=== PATIENT | female | born 1955 | race Caucasian/White ===

== ENCOUNTER 2018-11-09 18:47 | Emergency (ER) | payer MEDICARE, OTHER ==
[~2018-11-09] VITALS: Ht 157.5 cm; Wt 66.8 kg
[2018-11-09] MEDS ORDERED: PARO20TA24 PO (19:05)
[2018-11-09] MEDS ORDERED: IBUPROFEN 800 MG TABLET PO ONE (21:30)
[2018-11-09 21:57] VITALS: BP 129/77
== END 2018-11-09 22:11 | disposition home or self-care (01) ==
LOC: EMS 18:50
DX: S62.616A Displaced fracture of proximal phalanx of right little finger, initial encounter for closed fracture (principal); F41.9 Anxiety disorder, unspecified; Z88.0 Allergy status to penicillin; W01.0XXA Fall on same level from slipping, tripping and stumbling without subsequent striking against object, initial encounter; Y93.01 Activity, walking, marching and hiking; Y92.89 Other specified places as the place of occurrence of the external cause; Y99.8 Other external cause status

== ENCOUNTER 2020-08-09 14:37 | Inpatient (IN) | payer MEDICARE, OTHER ==
[~2020-08-09] VITALS: Ht 157.5 cm; Wt 69.9 kg
[~2020-08-09 14:37] MED LIST: PARO-38 PO
[2020-08-09] MEDS ORDERED: FAMOTIDINE 10 MG/ML 2 ML VIAL IVP ONE (15:15)
[2020-08-09] MEDS ORDERED: ONDANSETRON HCL 4 MG/2 ML VIAL IVP ONE (15:15)
[2020-08-09] MEDS ORDERED: ACETAMINOPHEN 500 MG TABLET PO ONE (15:15)
[2020-08-09] MEDS ORDERED: SODIUM CHLORIDE 0.9% 1,000 ML IV ONE (15:15)
[2020-08-09] MEDS ORDERED: MAG HYDROX/AL HYDROX/SIMETH 30 ML SUSP UDCUP PO ONE (15:15)
[2020-08-09 15:36] LABS: BASOPHILS % (AUTO) 0.5 % (0.0-2.0); EOSINOPHILS % (AUTO) 0 % (1.0-6.0); HEMATOCRIT 40.6 % (36-46); HEMOGLOBIN 13.7 g/dL (12.0-16.0); LYMPHOCYTES # (AUTO) 0.9 K/uL (1.0-4.8); LYMPHOCYTES % (AUTO) 19.5 % (22.0-44.0); MEAN CORPUSCULAR HEMOGLOBIN 31.9 pg (26.0-34.0); MEAN CORPUSCULAR HGB CONC 33.8 G/dL (31.0-37.0); MEAN CORPUSCULAR VOLUME 94 fL (80-100); MONOCYTES # (AUTO) 0.3 K/uL (0.1-1.0); MONOCYTES % (AUTO) 6.6 % (2.0-9.0); NEUTROPHILS # (AUTO) 3.4 K/uL (1.8-7.7); NEUTROPHILS % (AUTO) 73.4 % (40.0-70.0); PLATELET COUNT (AUTO) 164 K/uL (150-450); RED CELL DISTRIBUTION WIDTH 13.9 % (11.5-14.5)
[2020-08-09 15:46] LABS: ANION GAP 10 mmol/L (8-16); CALCIUM, TOTAL 8.4 mg/dL (8.8-10.5); CARBON DIOXIDE 25 mmol/L (22-29); CHLORIDE 99 mmol/L (98-107); CREATININE 0.76 mg/dL (0.60-1.30); GLOMERULAR FILTR. RATE CALC > 60 mL/min (>60); GLUCOSE,RANDOM 146 mg/dL (70-110); POTASSIUM 3.8 mmol/L (3.5-5.1); SODIUM SERUM 134 mmol/L (136-145); UREA NITROGEN, BLOOD 5 mg/dL (7-18)
[2020-08-09 15:50] LABS: D-DIMER 0.66 mg/L FEU (0.00-0.50); INR 0.9 (0.9-1.1); PROTHROMBIN TIME 9.8 SEC (9.4-11.6)
[2020-08-09 15:52] LABS: ALANINE AMINOTRANSFERASE 162 U/L (12-78); ALBUMIN 3.3 g/dL (3.4-5.0); ALKALINE PHOSPHATASE 246 U/L (46-116); ASPARTATE AMINOTRANSFERASE 209 U/L (15-37); BILIRUBIN,TOTAL 0.6 mg/dL (0.1-1.0); C-REACTIVE PROTEIN QUANT 4.75 mg/dL (0.00-0.30); CREATINE KINASE, TOTAL ONLY 53 U/L (26-192); TOTAL PROTEIN, SERUM 7.7 g/dL (6.4-8.2)
[2020-08-09 15:53] LABS: LACTIC ACID 0.9 mmol/L (0.4-2.0)
[2020-08-09 16:05] LABS: B-TYPE NATRIURETIC PEPTIDE 13 pg/mL (0-100)
[2020-08-09 16:08] LABS: COVID AG,FIA SOURCE NASOPHARYNGEAL
[2020-08-09 16:35] LABS: INFLUENZA TYPE A NEGATIVE FOR TYPE A (NEGATIVE); INFLUENZA TYPE B NEGATIVE FOR TYPE B (NEGATIVE)
[2020-08-09] MEDS ORDERED: LEVOFLOXACIN 750 MG/D5% WATER 150 ML IV ONE (16:45)
[2020-08-09] MEDS ORDERED: DEXAMETHASONE SOD PHOS 4 MG/ML VIAL IVP ONE (17:00)
[2020-08-09] MEDS ORDERED: ACETAMINOPHEN 325 MG TABLET PO PRN ×2 (18:45→19:15)
[2020-08-09] MEDS ORDERED: 0.9% SODIUM CHLORIDE 10 ML SYRINGE IVP PRN (18:45)
[2020-08-09] MEDS ORDERED: ONDANSETRON HCL 4 MG/2 ML VIAL IVP PRN ×2 (18:45→19:15)
[2020-08-09 19:15] LABS: APPEARANCE,URINE CLEAR (CLEAR); BILIRUBIN,URINE NEGATIVE (NEGATIVE); GLUCOSE, URINE (UA) NEGATIVE (NEGATIVE); KETONES,URINE 15 mg/dL (NEGATIVE); LEUKOCYTE ESTERASE ,URINE NEGATIVE (NEGATIVE); NITRATE,URINE NEGATIVE (NEGATIVE); OCCULT BLOOD,URINE TRACE (NEGATIVE); PH,URINE 6.5 (5.0-8.0); PROTEIN,URINE NEGATIVE (NEGATIVE)
[2020-08-09 19:31] LABS: BACTERIA,URINE Rare /HPF (None Seen); RBC,URINE 0-2 /HPF (0-2); SQUAMOUS EPITHELIAL CELL,UR Rare /LPF (None Seen); WBC,URINE 0-2 /HPF (0-5)
[2020-08-09] MEDS: FAMOTIDINE 10 MG/ML 2 ML VIAL IVP SCH (21:00)
[2020-08-10] MEDS: HEPARIN SODIUM,PORCINE 5,000 UNITS/ML VIAL SQ SCH ×2 (01:28→09:17)
[2020-08-10 03:16] VITALS: BP 155/62
[2020-08-10 06:17] LABS: EOSINOPHILS % (AUTO) 0 % (1.0-6.0); HEMATOCRIT 39.6 % (36-46); HEMOGLOBIN 13.9 g/dL (12.0-16.0); LYMPHOCYTES # (AUTO) 0.8 K/uL (1.0-4.8); LYMPHOCYTES % (AUTO) 21.9 % (22.0-44.0); MEAN CORPUSCULAR HEMOGLOBIN 32.8 pg (26.0-34.0); MEAN CORPUSCULAR HGB CONC 35.1 G/dL (31.0-37.0); MEAN CORPUSCULAR VOLUME 94 fL (80-100); MONOCYTES # (AUTO) 0.3 K/uL (0.1-1.0); MONOCYTES % (AUTO) 8.9 % (2.0-9.0); NEUTROPHILS # (AUTO) 2.6 K/uL (1.8-7.7); NEUTROPHILS % (AUTO) 69.2 % (40.0-70.0); PLATELET COUNT (AUTO) 172 K/uL (150-450); RED BLOOD CELL COUNT(AUTO) 4.23 MIL/uL (4.00-5.20); RED CELL DISTRIBUTION WIDTH 13.4 % (11.5-14.5)
[2020-08-10 06:40] LABS: ALANINE AMINOTRANSFERASE 181 U/L (12-78); ALBUMIN 3.1 g/dL (3.4-5.0); ALKALINE PHOSPHATASE 237 U/L (46-116); ANION GAP 7 mmol/L (8-16); ASPARTATE AMINOTRANSFERASE 179 U/L (15-37); BILIRUBIN,TOTAL 0.5 mg/dL (0.1-1.0); CALCIUM, TOTAL 8.3 mg/dL (8.8-10.5); CARBON DIOXIDE 28 mmol/L (22-29); CHLORIDE 103 mmol/L (98-107); CREATININE 0.75 mg/dL (0.60-1.30); GLOMERULAR FILTR. RATE CALC > 60 mL/min (>60); GLUCOSE,RANDOM 172 mg/dL (70-110); POTASSIUM 4.2 mmol/L (3.5-5.1); SODIUM SERUM 138 mmol/L (136-145); TOTAL PROTEIN, SERUM 7.7 g/dL (6.4-8.2); UREA NITROGEN, BLOOD 6 mg/dL (7-18)
[2020-08-10] MEDS: PARoxetine HCL 20 MG TABLET PO SCH (09:18)
[2020-08-10] MEDS: FAMOTIDINE 10 MG/ML 2 ML VIAL IVP SCH ×2 (09:18→20:54)
[2020-08-10] MEDS ORDERED: HEPARIN SODIUM,PORCINE 5,000 UNITS/ML VIAL IVP PRN (12:45)
[2020-08-10] MEDS ORDERED: *CLINICAL-LEVOFLOXACIN IVPB DOSING CLINICAL ONE (12:45)
[2020-08-10] MEDS ORDERED: REMDESIVIR 200 MG in SODIUM CHLORIDE 0.9% 250 ML IV ONE (13:15)
[2020-08-10] MEDS ORDERED: DEXAMETHASONE 4 MG TABLET PO ONE (13:15)
[2020-08-10 13:18] VITALS: BP 145/79
[2020-08-10] MEDS ORDERED: SODIUM CHLORIDE 0.9% 250 ML IV ONE ×2 (13:36→17:35)
[2020-08-10] MEDS: HEPARIN SODIUM 25000 UNITS/D5W 250 ML IV PRN (14:08)
[2020-08-10 14:14] LABS: BASOPHILS % (AUTO) 0.1 % (0.0-2.0); EOSINOPHILS % (AUTO) 0 % (1.0-6.0); HEMATOCRIT 41.4 % (36-46); HEMOGLOBIN 14.1 g/dL (12.0-16.0); LYMPHOCYTES % (AUTO) 13.5 % (22.0-44.0); MEAN CORPUSCULAR HEMOGLOBIN 32.1 pg (26.0-34.0); MEAN CORPUSCULAR VOLUME 94 fL (80-100); MONOCYTES # (AUTO) 0.4 K/uL (0.1-1.0); MONOCYTES % (AUTO) 5.6 % (2.0-9.0); NEUTROPHILS % (AUTO) 80.8 % (40.0-70.0); PLATELET COUNT (AUTO) 181 K/uL (150-450); RED BLOOD CELL COUNT(AUTO) 4.38 MIL/uL (4.00-5.20); RED CELL DISTRIBUTION WIDTH 13.6 % (11.5-14.5)
[2020-08-10 14:26] LABS: PROTHROMBIN TIME 10.1 SEC (9.4-11.6)
[2020-08-10 14:36] LABS: C-REACTIVE PROTEIN QUANT 3.25 mg/dL (0.00-0.30)
[2020-08-10 17:30] VITALS: BP 139/81
[2020-08-10] MEDS: LEVOFLOXACIN 750 MG/D5% WATER 150 ML IV SCH (17:39)
[2020-08-10 20:37] VITALS: BP 119/67
[2020-08-10] MEDS: CHOLECALCIFEROL (VIT D3) 1,000 UNITS [25 MCG] TABLET PO SCH (20:54)
[2020-08-10] MEDS: ZINC SULFATE 220 MG CAPSULE PO SCH (20:54)
[2020-08-10] MEDS: ASCORBIC ACID 500 MG TABLET PO SCH (20:54)
[2020-08-11 00:31] VITALS: BP 127/72
[2020-08-11 04:12] VITALS: BP 108/59
[2020-08-11 06:29] LABS: BASOPHILS % (AUTO) 0.1 % (0.0-2.0); EOSINOPHILS % (AUTO) 0 % (1.0-6.0); HEMATOCRIT 39.9 % (36-46); HEMOGLOBIN 13.6 g/dL (12.0-16.0); LYMPHOCYTES # (AUTO) 0.7 K/uL (1.0-4.8); LYMPHOCYTES % (AUTO) 10.9 % (22.0-44.0); MEAN CORPUSCULAR HEMOGLOBIN 31.9 pg (26.0-34.0); MEAN CORPUSCULAR HGB CONC 34.1 G/dL (31.0-37.0); MEAN CORPUSCULAR VOLUME 94 fL (80-100); MONOCYTES # (AUTO) 0.3 K/uL (0.1-1.0); MONOCYTES % (AUTO) 4.7 % (2.0-9.0); NEUTROPHILS # (AUTO) 5.2 K/uL (1.8-7.7); NEUTROPHILS % (AUTO) 84.3 % (40.0-70.0); PLATELET COUNT (AUTO) 203 K/uL (150-450); RED BLOOD CELL COUNT(AUTO) 4.26 MIL/uL (4.00-5.20); RED CELL DISTRIBUTION WIDTH 13.7 % (11.5-14.5)
[2020-08-11 06:49] LABS: D-DIMER 0.45 mg/L FEU (0.00-0.50)
[2020-08-11 07:13] LABS: ALANINE AMINOTRANSFERASE 211 U/L (12-78); ALBUMIN 2.9 g/dL (3.4-5.0); ALKALINE PHOSPHATASE 233 U/L (46-116); ANION GAP 2 mmol/L (8-16); ASPARTATE AMINOTRANSFERASE 160 U/L (15-37); BILIRUBIN,TOTAL 0.5 mg/dL (0.1-1.0); C-REACTIVE PROTEIN QUANT 4.24 mg/dL (0.00-0.30); CALCIUM, TOTAL 8.6 mg/dL (8.8-10.5); CARBON DIOXIDE 30 mmol/L (22-29); CHLORIDE 103 mmol/L (98-107); CREATININE 0.72 mg/dL (0.60-1.30); FERRITIN 530 ng/mL (8-252); GLOMERULAR FILTR. RATE CALC > 60 mL/min (>60); GLUCOSE,RANDOM 203 mg/dL (70-110); LACTATE DEHYDROGENASE 341 U/L (81-234); POTASSIUM 4.5 mmol/L (3.5-5.1); SODIUM SERUM 135 mmol/L (136-145); TOTAL PROTEIN, SERUM 7.5 g/dL (6.4-8.2); UREA NITROGEN, BLOOD 14 mg/dL (7-18)
[2020-08-11 07:58] VITALS: BP 113/70
[2020-08-11] MEDS: FAMOTIDINE 10 MG/ML 2 ML VIAL IVP SCH ×2 (08:42→20:22)
[2020-08-11] MEDS: BENZONATATE 100 MG CAPSULE PO PRN (08:43)
[2020-08-11] MEDS: PARoxetine HCL 20 MG TABLET PO SCH (08:43)
[2020-08-11] MEDS: ASCORBIC ACID 500 MG TABLET PO SCH ×2 (08:43→20:22)
[2020-08-11] MEDS: DEXAMETHASONE 2 MG TABLET PO SCH (08:43)
[2020-08-11] MEDS: ZINC SULFATE 220 MG CAPSULE PO SCH ×2 (08:43→20:22)
[2020-08-11] MEDS: CHOLECALCIFEROL (VIT D3) 1,000 UNITS [25 MCG] TABLET PO SCH (08:43)
[2020-08-11 12:22] VITALS: BP 127/61
[2020-08-11] MEDS: HEPARIN SODIUM,PORCINE 5,000 UNITS/ML VIAL IVP PRN (14:34)
[2020-08-11 15:32] VITALS: BP 118/69
[2020-08-11] MEDS: REMDESIVIR 100 MG in SODIUM CHLORIDE 0.9% 250 ML IV SCH (16:19)
[2020-08-11] MEDS: LEVOFLOXACIN 750 MG/D5% WATER 150 ML IV SCH (17:52)
[2020-08-11 20:55] VITALS: BP 134/87
[2020-08-12] VITALS (7 sets, daily range): BP systolic 120–153; BP diastolic 66–83
[2020-08-12] MEDS: HEPARIN SODIUM,PORCINE 5,000 UNITS/ML VIAL IVP PRN ×2 (01:11→23:53)
[2020-08-12 06:44] LABS: D-DIMER 0.4 mg/L FEU (0.00-0.50)
[2020-08-12 07:13] LABS: ALANINE AMINOTRANSFERASE 182 U/L (12-78); ALBUMIN 2.8 g/dL (3.4-5.0); ALKALINE PHOSPHATASE 207 U/L (46-116); ANION GAP 4 mmol/L (8-16); ASPARTATE AMINOTRANSFERASE 89 U/L (15-37); BILIRUBIN,TOTAL 0.4 mg/dL (0.1-1.0); C-REACTIVE PROTEIN QUANT 2.85 mg/dL (0.00-0.30); CALCIUM, TOTAL 8.4 mg/dL (8.8-10.5); CARBON DIOXIDE 29 mmol/L (22-29); CHLORIDE 102 mmol/L (98-107); CREATININE 0.72 mg/dL (0.60-1.30); FERRITIN 418 ng/mL (8-252); GLOMERULAR FILTR. RATE CALC > 60 mL/min (>60); GLUCOSE,RANDOM 204 mg/dL (70-110); LACTATE DEHYDROGENASE 300 U/L (81-234); POTASSIUM 4.3 mmol/L (3.5-5.1); SODIUM SERUM 135 mmol/L (136-145); TOTAL PROTEIN, SERUM 7.2 g/dL (6.4-8.2); UREA NITROGEN, BLOOD 12 mg/dL (7-18)
[2020-08-12] MEDS: DEXAMETHASONE 2 MG TABLET PO SCH (07:57)
[2020-08-12] MEDS: FAMOTIDINE 10 MG/ML 2 ML VIAL IVP SCH ×2 (07:58→23:52)
[2020-08-12] MEDS: BENZONATATE 100 MG CAPSULE PO PRN (07:58)
[2020-08-12] MEDS: ASCORBIC ACID 500 MG TABLET PO SCH ×2 (07:58→23:52)
[2020-08-12] MEDS: CHOLECALCIFEROL (VIT D3) 1,000 UNITS [25 MCG] TABLET PO SCH (07:58)
[2020-08-12] MEDS: PARoxetine HCL 20 MG TABLET PO SCH (07:58)
[2020-08-12] MEDS: ZINC SULFATE 220 MG CAPSULE PO SCH ×2 (07:58→23:52)
[2020-08-12] MEDS: REMDESIVIR 100 MG in SODIUM CHLORIDE 0.9% 250 ML IV SCH (16:28)
[2020-08-13 04:41] VITALS: BP 139/71
[2020-08-13 06:40] LABS: D-DIMER 0.49 mg/L FEU (0.00-0.50)
[2020-08-13 07:16] LABS: ALANINE AMINOTRANSFERASE 232 U/L (12-78); ALBUMIN 2.9 g/dL (3.4-5.0); ALKALINE PHOSPHATASE 208 U/L (46-116); ANION GAP 7 mmol/L (8-16); ASPARTATE AMINOTRANSFERASE 95 U/L (15-37); BILIRUBIN,TOTAL 0.5 mg/dL (0.1-1.0); C-REACTIVE PROTEIN QUANT 1.59 mg/dL (0.00-0.30); CALCIUM, TOTAL 8.4 mg/dL (8.8-10.5); CARBON DIOXIDE 27 mmol/L (22-29); CHLORIDE 103 mmol/L (98-107); CREATININE 0.59 mg/dL (0.60-1.30); FERRITIN 403 ng/mL (8-252); GLOMERULAR FILTR. RATE CALC > 60 mL/min (>60); GLUCOSE,RANDOM 208 mg/dL (70-110); LACTATE DEHYDROGENASE 301 U/L (81-234); SODIUM SERUM 137 mmol/L (136-145); TOTAL PROTEIN, SERUM 7.1 g/dL (6.4-8.2); UREA NITROGEN, BLOOD 13 mg/dL (7-18)
[2020-08-13] MEDS: FAMOTIDINE 10 MG/ML 2 ML VIAL IVP SCH ×2 (08:07→20:01)
[2020-08-13] MEDS: ASCORBIC ACID 500 MG TABLET PO SCH ×2 (08:07→20:01)
[2020-08-13] MEDS: ZINC SULFATE 220 MG CAPSULE PO SCH ×2 (08:07→20:01)
[2020-08-13] MEDS: PARoxetine HCL 20 MG TABLET PO SCH (08:07)
[2020-08-13] MEDS: CHOLECALCIFEROL (VIT D3) 1,000 UNITS [25 MCG] TABLET PO SCH (08:07)
[2020-08-13] MEDS: DEXAMETHASONE 2 MG TABLET PO SCH (08:07)
[2020-08-13 08:53] VITALS: BP 129/76
[2020-08-13] MEDS: HEPARIN SODIUM,PORCINE 5,000 UNITS/ML VIAL IVP PRN (09:30)
[2020-08-13] MEDS: HEPARIN SODIUM 25000 UNITS/D5W 250 ML IV PRN (09:42)
[2020-08-13 11:07] VITALS: BP 130/76
[2020-08-13] MEDS: REMDESIVIR 100 MG in SODIUM CHLORIDE 0.9% 250 ML IV SCH (15:44)
[2020-08-13 16:12] VITALS: BP 147/83
[2020-08-13 19:21] VITALS: BP 144/77
[2020-08-13 23:49] VITALS: BP 126/70
[2020-08-14 04:33] VITALS: BP 128/72
[2020-08-14 07:26] LABS: BASOPHILS % (AUTO) 0.1 % (0.0-2.0); EOSINOPHILS % (AUTO) 0.1 % (1.0-6.0); HEMATOCRIT 39.4 % (36-46); HEMOGLOBIN 13.4 g/dL (12.0-16.0); LYMPHOCYTES # (AUTO) 1.6 K/uL (1.0-4.8); LYMPHOCYTES % (AUTO) 21.3 % (22.0-44.0); MEAN CORPUSCULAR HEMOGLOBIN 31.6 pg (26.0-34.0); MEAN CORPUSCULAR VOLUME 93 fL (80-100); MONOCYTES # (AUTO) 0.9 K/uL (0.1-1.0); MONOCYTES % (AUTO) 12.8 % (2.0-9.0); NEUTROPHILS # (AUTO) 4.8 K/uL (1.8-7.7); NEUTROPHILS % (AUTO) 65.7 % (40.0-70.0); PLATELET COUNT (AUTO) 336 K/uL (150-450); RED BLOOD CELL COUNT(AUTO) 4.24 MIL/uL (4.00-5.20); RED CELL DISTRIBUTION WIDTH 13.3 % (11.5-14.5)
[2020-08-14 07:38] LABS: D-DIMER 0.38 mg/L FEU (0.00-0.50)
[2020-08-14 07:45] VITALS: BP 120/71
[2020-08-14 08:37] LABS: ALANINE AMINOTRANSFERASE 193 U/L (12-78); ALBUMIN 2.7 g/dL (3.4-5.0); ALKALINE PHOSPHATASE 188 U/L (46-116); ANION GAP 10 mmol/L (8-16); ASPARTATE AMINOTRANSFERASE 48 U/L (15-37); BILIRUBIN,TOTAL 0.6 mg/dL (0.1-1.0); C-REACTIVE PROTEIN QUANT 0.89 mg/dL (0.00-0.30); CALCIUM, TOTAL 8.2 mg/dL (8.8-10.5); CARBON DIOXIDE 26 mmol/L (22-29); CHLORIDE 102 mmol/L (98-107); CREATININE 0.62 mg/dL (0.60-1.30); FERRITIN 354 ng/mL (8-252); GLOMERULAR FILTR. RATE CALC > 60 mL/min (>60); GLUCOSE,RANDOM 217 mg/dL (70-110); LACTATE DEHYDROGENASE 267 U/L (81-234); POTASSIUM 3.9 mmol/L (3.5-5.1); SODIUM SERUM 138 mmol/L (136-145); TOTAL PROTEIN, SERUM 6.8 g/dL (6.4-8.2); UREA NITROGEN, BLOOD 13 mg/dL (7-18)
[2020-08-14] MEDS: FAMOTIDINE 10 MG/ML 2 ML VIAL IVP SCH ×2 (08:55→21:20)
[2020-08-14] MEDS: CHOLECALCIFEROL (VIT D3) 1,000 UNITS [25 MCG] TABLET PO SCH (08:55)
[2020-08-14] MEDS: ZINC SULFATE 220 MG CAPSULE PO SCH ×2 (08:55→21:20)
[2020-08-14] MEDS: PARoxetine HCL 20 MG TABLET PO SCH (08:55)
[2020-08-14] MEDS: ASCORBIC ACID 500 MG TABLET PO SCH ×2 (08:55→21:20)
[2020-08-14] MEDS: DEXAMETHASONE 2 MG TABLET PO SCH (08:55)
[2020-08-14] MEDS: HEPARIN SODIUM 25000 UNITS/D5W 250 ML IV PRN (08:58)
[2020-08-14 11:50] VITALS: BP 137/80
[2020-08-14] MEDS: REMDESIVIR 100 MG in SODIUM CHLORIDE 0.9% 250 ML IV SCH (15:41)
[2020-08-14 16:20] VITALS: BP 120/65
[2020-08-14 22:06] VITALS: BP 118/61
[2020-08-15 00:19] VITALS: BP 149/97
[2020-08-15 04:55] VITALS: BP 115/65
[2020-08-15 08:12] VITALS: BP 117/70
[2020-08-15] MEDS ORDERED: CHOL100018 PO (08:13)
[2020-08-15] MEDS ORDERED: APIX2.5T PO (08:13)
[2020-08-15] MEDS ORDERED: DEXA2 PO (08:13)
[2020-08-15] MEDS ORDERED: BENZ100C68 PO (08:13)
[2020-08-15] MEDS: PARoxetine HCL 20 MG TABLET PO SCH (09:31)
[2020-08-15] MEDS: DEXAMETHASONE 2 MG TABLET PO SCH (09:31)
[2020-08-15] MEDS: ZINC SULFATE 220 MG CAPSULE PO SCH (09:31)
[2020-08-15] MEDS: ASCORBIC ACID 500 MG TABLET PO SCH (09:31)
[2020-08-15] MEDS: FAMOTIDINE 10 MG/ML 2 ML VIAL IVP SCH (09:32)
[2020-08-15] MEDS: CHOLECALCIFEROL (VIT D3) 1,000 UNITS [25 MCG] TABLET PO SCH (09:33)
[2020-08-15 11:24] VITALS: BP 100/65
[2020-08-15 16:24] VITALS: BP 111/66
[2020-08-15] MEDS ORDERED: OXYGEN (18:19)
== END 2020-08-15 19:00 | disposition home health service (06) | DRG 177 ==
LOC: EMS 14:52 → 5N 19:14
PROVIDERS: ADMIT Internal Medicine; ATTEND Internal Medicine
PROC: XW033E5 Introduction of Remdesivir Anti-infective into Peripheral Vein, Percutaneous Approach, New Technology Group 5 (ICD-10-PCS; principal; 2020-08-11)
DX: U07.1 COVID-19 (principal); J12.89 Other viral pneumonia; D68.59 Other primary thrombophilia; F41.9 Anxiety disorder, unspecified; D72.810 Lymphocytopenia; E66.9 Obesity, unspecified; R79.82 Elevated C-reactive protein (CRP); R79.89 Other specified abnormal findings of blood chemistry; Z88.0 Allergy status to penicillin; Z68.30 Body mass index [BMI] 30.0-30.9, adult; Z79.899 Other long term (current) drug therapy
CPT/HCPCS: 80074; 82728; 83605; 83615; 84145; 85379; 86140; 87426; 87804; 93005; 99291; J1100; J1644; J1956; J2405; J3490; J7030; J7050; J8540; 36415-L1; 36415-TC; 71045-TC; U0003